=== PATIENT | female | born 1985 | race Caucasian/White ===

== ENCOUNTER 2020-01-02 10:40 | Inpatient (IN) | payer OTHER ==
[~2020-01-02] VITALS: Ht 157.5 cm; Wt 87.9 kg
[2020-01-02] MEDS: CEFTRIAXONE PMX 1GM/50ML 50 ML IV SCH (09:00)
[~2020-01-02 10:40] MED LIST: CEFD300C37 PO; DOCU-131 PO; IBUP200T49 PO; OXYC-302 PO; PNV1TABL4 PO
[2020-01-02 11:19] LABS: MEAN CORPUSCULAR HEMOGLOBIN 29.4 pg (27.0-34.8); MEAN CORPUSCULAR HGB CONC 33.7 g/dL (32.4-35.8); MEAN CORPUSCULAR VOLUME 87.2 fL (80-100); MEAN PLATELET VOLUME 8.7 fL (7.4-10.4); PLATELET COUNT 226 x10^3/uL (130-400); RED BLOOD COUNT 5.34 x10^6/uL (3.82-5.3); RED CELL DISTRIBUTION WIDTH 13.9 % (9.6-15.2)
--- NOTE | 2020-01-02 11:25 | NUR ---
Pt states bilat upper abd pain that radiates to bilat flank area. States painful urination as well. Lab and imaginf at bedside. Cont to monitor.
[2020-01-02 11:32] LABS: ALANINE AMINOTRANSFERASE 24 U/L (12-78); ALBUMIN 3.4 g/dL (3.4-5.0); ANION GAP 7 mmol/L (5-15); CALCIUM 8.4 mg/dL (8.5-10.1); CHLORIDE 105 mmol/L (98-107); CREATININE 1.01 mg/dL (0.55-1.02)
[2020-01-02 11:34] LABS: ALKALINE PHOSPHATASE 96 U/L (45-117); BILIRUBIN,TOTAL 1.2 mg/dL (0.2-1.0); TOTAL PROTEIN 7.6 g/dL (6.4-8.2)
[2020-01-02 12:00] LABS: MD YES
[2020-01-02] MEDS ORDERED: SODIUM CHLORIDE 0.9% 1,000ML IVBOLUS ONE (12:00)
[2020-01-02] MEDS ORDERED: SODIUM CHLORIDE FLUSH 10ML SYR IVF ONE (12:00)
[2020-01-02 12:02] LABS: <PLATELET ESTIMATE> ADEQUATE; <PLT MORPHOLOGY> NORMAL PLT MORPH; <RBC MORPHOLOGY> NORMAL; BAND#(MANUAL) 2.32 x10^3/uL; BANDS%(MANUAL) 12 % (0-7); LYMPH#(MANUAL) 0.58 x10^3/uL (1-3.4); LYMPHS% (MANUAL) 3 % (22-44); MONOS#(MANUAL) 0.97 x10^3/uL (0.3-2.7); MONOS% (MANUAL) 5 % (2-9); SEG#(MANUAL) 15.44 x10^3/uL (1.8-6.8); SEGS% (MANUAL) 80 % (42-75)
--- NOTE | 2020-01-02 12:12 | NUR ---
Pt's IV started, IVF infusing. Urine cath completed, sent to lab. Pt remains on monitors. Call light in reach. Will follow orders.
[2020-01-02 12:28] LABS: MICROSCOPIC AUTO
[2020-01-02 12:31] LABS: CULTURE INDICATED? YES
[2020-01-02] MEDS ORDERED: CEFTRIAXONE PMX 1GM/50ML 50 ML ONE (12:45)
--- NOTE | 2020-01-02 12:50 | NUR ---
IVABX started per orders, blood cultures x2 drawn. Pt repositioned for comfort. No distress. Cont to monitor.
[2020-01-02] MEDS ORDERED: CEFTRIAXONE PMX 1GM/50ML 50 ML IV ONE (13:00)
[2020-01-02] MEDS ORDERED: ONDANSETRON 2MG/ML, 2ML IVPush PRN (14:00)
[2020-01-02] MEDS ORDERED: TRAZODONE 50MG TABLET PO PRN (14:00)
[2020-01-02] MEDS ORDERED: KETOROLAC 30 MG/1 ML ONE (14:07)
--- NOTE | 2020-01-02 14:07 | NUR ---
TASK RN: Pt requesting medication for headache. Providing medication per EMAR. Pt apprecaitive.
[2020-01-02] MEDS: KETOROLAC 30 MG/1 ML IV PRN (14:18)
[2020-01-02 14:36] LABS: FREE T4 (FREE THYROXINE) 1.28 ng/dL (0.76-1.46)
[2020-01-02] MEDS ORDERED: LIDOCAINE-MPF 1%, 5ML ONE (14:51)
--- NOTE | 2020-01-02 14:52 | NUR ---
TASK RN: Pt not in room on [facility] at this time.
--- NOTE | 2020-01-02 14:56 | NUR ---
Pt to CT.
[2020-01-02] MEDS ORDERED: VANCOMYCIN PER PHARMACY MC PRN (15:00)
--- NOTE | 2020-01-02 15:16 | NUR ---
Report gievn to Floor RN, pt remains in CT.
[2020-01-02 15:18] LABS: PROTHROMBIN TIME 10.6 Seconds (9.6-11.5)
--- NOTE | 2020-01-02 15:45 | NUR ---
Pt back form LP, Called IR, pt to lie flat for 3 hours post LP, communicated to receiving RN MIAH. Pt being transfered to floor, has all own belongings. Pt is wearing mask upon transfer to floor.
[2020-01-02 16:06] VITALS: BP 106/69
[2020-01-02] MEDS: ENOXAPARIN 40 MG/0.4 ML SQ SCH (16:41)
[2020-01-02] MEDS: CLINDAMYCIN PMX 600MG/50ML 50 ML IV SCH (16:41)
[2020-01-02] MEDS: ACETAMINOPHEN 325 MG TABLET PO PRN ×2 (16:41→22:56)
[2020-01-02] MEDS: DEXAMETHASONE 4 MG/ML, 1ML IVPush SCH ×2 (16:42→22:56)
[2020-01-02] MEDS ORDERED: PHARMACOKINETIC MONITORING MC PRN (17:00)
[2020-01-02] MEDS ORDERED: VANCOMYCIN 2,100 MG in SODIUM CHLORIDE 0.9% 500 ML IV ONE (17:00)
[2020-01-02 17:22] LABS: GLUCOSE, CSF 56 mg/dL (40-80); TOTAL PROTEIN,CSF 43 mg/dL (15-45)
[2020-01-02] MEDS: NS + 20MEQ KCL 1,000 ML IV SCH (18:19)
[2020-01-02 18:28] VITALS: BP 106/69
[2020-01-02 19:37] VITALS: BP 102/61
[2020-01-03] VITALS (8 sets, daily range): BP systolic 86–104; BP diastolic 56–70
[2020-01-03] MEDS: CLINDAMYCIN PMX 600MG/50ML 50 ML IV SCH ×2 (00:54→08:22)
[2020-01-03] MEDS ORDERED: SODIUM CHLORIDE 0.9%, 500ML IVBOLUS ONE (01:00)
[2020-01-03] MEDS ORDERED: SODIUM CHLORIDE 0.9% 1,000ML IVBOLUS ONE ×2 (03:00→04:30)
[2020-01-03] MEDS: NS + 20MEQ KCL 1,000 ML IV SCH (03:56)
[2020-01-03] MEDS: DEXAMETHASONE 4 MG/ML, 1ML IVPush SCH (04:27)
[2020-01-03] MEDS ORDERED: VANCOMYCIN 1,700 MG in SODIUM CHLORIDE 0.9% 250 ML IV SCH (05:00)
[2020-01-03 06:02] LABS: ALBUMIN 2.4 g/dL (3.4-5.0); ANION GAP 6 mmol/L (5-15); CALCIUM 7.5 mg/dL (8.5-10.1); CHLORIDE 116 mmol/L (98-107)
[2020-01-03 06:07] LABS: ALANINE AMINOTRANSFERASE 22 U/L (12-78); ALKALINE PHOSPHATASE 68 U/L (45-117); BILIRUBIN,TOTAL 0.6 mg/dL (0.2-1.0); CREATININE 0.76 mg/dL (0.55-1.02)
[2020-01-03 06:27] LABS: BASOPHILS # (AUTO) 0.01 x10^3/uL (0-0.1); BASOPHILS % (AUTO) 0 % (0-1); EOSINOPHILS # (AUTO) 0.05 x10^3/uL (0-0.4); EOSINOPHILS % (AUTO) 0 % (1-7); LYMPHOCYTES # (AUTO) 0.77 x10^3/uL (1-3.4); LYMPHOCYTES % (AUTO) 5 % (22-44); MD NO; MEAN CORPUSCULAR HGB CONC 32.9 g/dL (32.4-35.8); MEAN CORPUSCULAR VOLUME 88.4 fL (80-100); MEAN PLATELET VOLUME 8.9 fL (7.4-10.4); MONOCYTES # (AUTO) 0.18 x10^3/uL (0.2-0.8); MONOCYTES % (AUTO) 1 % (2-9); NEUTROPHILS % (AUTO) 94 % (42-75); PLATELET COUNT 175 x10^3/uL (130-400); RED BLOOD COUNT 4.38 x10^6/uL (3.82-5.3); RED CELL DISTRIBUTION WIDTH 13.9 % (9.6-15.2)
[2020-01-03] MEDS: NEUTRA PHOS K 250 MG TABLET PO SCH ×2 (08:22→19:58)
[2020-01-03] MEDS: CEFTRIAXONE PMX 1GM/50ML 50 ML IV SCH (09:02)
[2020-01-03] MEDS ORDERED: ICN COSYNTROPIN 250 MCG in SYRINGE 1 EA IV ONE (09:30)
[2020-01-03] MEDS ORDERED: COSYNTROPIN 0.25 MG IVPush ONE (10:00)
[2020-01-03] MEDS: ENOXAPARIN 40 MG/0.4 ML SQ SCH (13:08)
[2020-01-03] MEDS ORDERED: NS + 20MEQ KCL 1,000 ML IV SCH (14:00)
[2020-01-04 00:48] VITALS: BP 103/69
[2020-01-04 05:26] LABS: ANION GAP 7 mmol/L (5-15); CALCIUM 8.4 mg/dL (8.5-10.1); CHLORIDE 113 mmol/L (98-107)
[2020-01-04 05:31] LABS: MEAN CORPUSCULAR HEMOGLOBIN 29.2 pg (27.0-34.8); MEAN CORPUSCULAR VOLUME 88.6 fL (80-100); PLATELET COUNT 260 x10^3/uL (130-400); RED BLOOD COUNT 4.36 x10^6/uL (3.82-5.3); RED CELL DISTRIBUTION WIDTH 13.9 % (9.6-15.2)
[2020-01-04 06:00] LABS: MD YES
[2020-01-04 06:02] LABS: BAND#(MANUAL) 1.13 x10^3/uL; BANDS%(MANUAL) 5 % (0-7); EOS#(MANUAL) 0.23 x10^3/uL (0.0-0.4); EOS% (MANUAL) 1 % (1-7); LYMPH#(MANUAL) 2.49 x10^3/uL (1-3.4); LYMPHS% (MANUAL) 11 % (22-44); MONOS% (MANUAL) 4 % (2-9); SEG#(MANUAL) 17.85 x10^3/uL (1.8-6.8); SEGS% (MANUAL) 79 % (42-75)
[2020-01-04 06:03] LABS: <PLATELET ESTIMATE> ADEQUATE; <PLT MORPHOLOGY> NORMAL PLT MORPH; <RBC MORPHOLOGY> NORMAL
[2020-01-04 06:43] VITALS: BP 110/75
[2020-01-04] MEDS: KETOROLAC 30 MG/1 ML IV PRN (08:30)
[2020-01-04] MEDS: NEUTRA PHOS K 250 MG TABLET PO SCH (08:31)
[2020-01-04] MEDS: CEFTRIAXONE PMX 1GM/50ML 50 ML IV SCH (08:37)
[2020-01-04] MEDS ORDERED: CEFA500C8 PO ×2 (09:18)
[2020-01-04] MEDS ORDERED: CEPH-368 PO (18:09)
== END 2020-01-04 11:11 | disposition home or self-care (01) | DRG 872 ==
LOC: ED 11:42 → EDIP 12:46 → SUATTDRO 13:02 → 4WST 15:44
PROVIDERS: ADMIT Hospitalist; ATTEND Hospitalist
PROC: 009U3ZX Drainage of Spinal Canal, Percutaneous Approach, Diagnostic (ICD-10-PCS; principal; 2020-01-02)
PROC: B01B1ZZ Fluoroscopy of Spinal Cord using Low Osmolar Contrast (ICD-10-PCS; 2020-01-02)
PROC: 0T9B70Z Drainage of Bladder with Drainage Device, Via Natural or Artificial Opening (ICD-10-PCS; 2020-01-02)
DX: A41.9 Sepsis, unspecified organism (principal); N10 Acute pyelonephritis; Z16.23 Resistance to quinolones and fluoroquinolones; D72.823 Leukemoid reaction; E87.6 Hypokalemia; K08.89 Other specified disorders of teeth and supporting structures; R65.20 Severe sepsis without septic shock; T38.0X5A Adverse effect of glucocorticoids and synthetic analogues, initial encounter; Z83.3 Family history of diabetes mellitus; Y92.89 Other specified places as the place of occurrence of the external cause
CPT/HCPCS: 36415; 62328; 70486; 71045; 76700; 80048; 80053; 81001; 82533; 82945; 83605; 83690; 83735; 84100; 84145; 84157; 84439; 84443; 85025; 85610; 87040; 87070; 87077; 87086; 87186; 87205; 88108; 89051; 93005; G0378; J0696; J1100; J1650; J1885; J3370; J3480; J0834; J7030; J7040